=== PATIENT | female | born 1975 | race Caucasian/White ===

== ENCOUNTER 2022-05-31 14:48 | Outpatient (CLI) | payer OTHER, SELFPAY ==
[2022-05-31 16:49] LABS: Albumin* 4.5 g/dL (3.3-5.0); Chloride* 101 mmol/L (96-114); Sodium* 137 mmol/L (135-149)
[2022-05-31 16:50] LABS: Potassium* 4.1 mmol/L (3.6-5.1)
[2022-05-31 16:52] LABS: Alkaline Phosphatase* 81 U/L (40-150); Aspartate Amino Transferase* 24 U/L (12-35); Bilirubin Total* 0.2 mg/dL (0.1-1.5); Blood Urea Nitrogen* 13 mg/dL (5-24); Carbon Dioxide* 30 mmol/L (20-32); Cholesterol* 246 mg/dL (90-199); Creatinine* 0.7 mg/dL (0.5-1.5); Estimated Glomerular Filt Rate 107 ml/min; Glucose* 111 mg/dL (60-115); Total Protein* 7.4 g/dL (6.0-8.3)
[2022-05-31 16:53] LABS: Alanine Aminotransferase* 21 U/L (4-35); Calcium* 9.3 mg/dL (8.4-10.6); HDL Cholesterol* 67 mg/dL (>=50); LDL Cholesterol Calculated 147 mg/dL (<100); Triglycerides* 159 mg/dL (40-149)
[2022-05-31 17:43] LABS: Vitamin B12* 187 pg/mL (243-894)
== END 2022-05-31 14:49 | disposition home or self-care (01) ==
PROVIDERS: PCP Family Medicine; Visit Provider Family Medicine
DX: Z01.419 Encounter for gynecological examination (general) (routine) without abnormal findings (principal); R03.0 Elevated blood-pressure reading, without diagnosis of hypertension; E53.8 Deficiency of other specified B group vitamins; H81.09 Meniere's disease, unspecified ear; I10 Essential (primary) hypertension; R53.83 Other fatigue
CPT/HCPCS: 80053; 80061; 82607; 84443

== ENCOUNTER 2024-11-12 11:46 | Emergency (ER) | payer BC, SELFPAY ==
[2024-11-12 12:08] VITALS: BP 160/122; PULSE 120; RESP 16; TEMP 36.4; O2SAT 97; BMI 21.5
--- NOTE | 2024-11-12 15:04 | ED.GENADULT ---
HPI - General Adult General Date Seen: 11/12/24 Chief complaint: Back Injury/Pain Stated complaint: Painful back spasms Time Seen by Provider: 11/12/24 15:00 History of Present Illness HPI narrative: 49 F with past medical history of hypertension, Meniere's disease, B12 deficiency. Three days ago on Monday she was bending over on the couch for a while, playing Legos with her family when she started experiencing pain in the left posterior ribcage/thoracic portion of her her back. The pain is just at and around her left scapula and radiates around her left chest from there. It hurts when she tries to move or lift her left arm. Does not really hurt to breathe. She is not short of breath. No cough. No fever. No anterior chest pain. No palpitations. No abdominal pain. No flank pain. urination and bowel movements have been normal. No dysuria, urgency, frequency. No associated numbness or tingling down her arms or legs. No lower back pain. The patient is pretty sure that she has muscle spasm in her back. She has no previous history of thoracic problems. Related Data Previous Rx's ?Medication ?Instructions ?Recorded cyanocobalamin (vitamin B-12) 1,000 mcg PO BID vitamin B12 06/02/22 1,000 mcg capsule deficiency #180 caps diazepam 5 mg tablet 5 mg PO TID PRN #10 tabs 11/12/24 hydrocodone 5 mg-acetaminophen 325 1 tab PO Q6H PRN pain #14 tabs 11/12/24 mg tablet ondansetron 4 mg disintegrating 4 mg PO Q8H PRN nausea and 11/12/24 tablet vomiting #10 tabs Allergies Allergy/AdvReac Type Severity Reaction Status Date / Time avocado Allergy Mild Nausea Verified 11/12/24 12:03 [facility] Medical History (Updated 11/12/24 @ 16:39 by Florentino Ybarra MD) Meniere's disease (1994) ?H81.09 - Meniere's disease, unspecified ear (ICD-10) History of depression ?Z86.59 - Personal history of other mental and behavioral disorders (ICD-10) Depression ?F32.A - Depression, unspecified (ICD-10) Constipation ?K59.00 - Constipation, unspecified (ICD-10) Chest pain ?R07.9 - Chest pain, unspecified (ICD-10) Surgical History (Updated 05/31/22 @ 14:31 by Hayley Miranda MD) No history of previous surgery Family History (Updated 05/31/22 @ 16:30 by Hayley Miranda MD) Father FH: prostate cancer Mother Migraine Stroke, Onset Age: 70 Brother Seizures Family/Other Breast cancer, Onset Age: 60 Social History (Updated 05/31/22 @ 16:31 by Hayley Miranda MD) Narrative: Drinks 5 alcoholic drinks a week Does not exercise Single, teacher of [employer] Tobacco abuse, currently 10/day, 10 pack years Smoking Status: Current every day smoker What tobacco products do you use: cigarettes Smoking packs per day: 0.5 Smoking cigarettes per day: 10.0 Do you use any of these nicotine containing products: None Second hand tobacco smoke exposure: No How often do you have a drink containing alcohol: 4 or more times a week How many standard drinks containing alcohol do you have on a typical day: 1 or 2 AUDIT-C Alcohol total score: 4 Non-prescribed substance use: denies use service: No Exam Narrative: Exam Narrative: Constitutional: Appears well-developed and well-nourished. Alert. Conversant. Non toxic. HENT: Head: Atraumatic. Nose: Nose normal. Mouth/Throat: Oral mucosa is clear and moist. no trismus. Pharynx normal. Tonsils symmetric. No tonsillar enlargement, erythema, or exudate. Eyes: Conjunctivae normal. EOM normal. Pupils equal, round, and reactive to light. No scleral icterus. Neck: Normal range of motion. Neck supple. No tracheal deviation present. Cardiovascular: Normal rate, regular rhythm. No gallop. No friction rub. No murmur heard. Symmetric radial artery pulses Pulmonary/Chest: Effort normal. No stridor. No respiratory distress. No wheezes. No rales. No rhonchi . Exquisite tenderness palpation over the left posterior hemithorax at the base of the scapula and around laterally. No bruising. No rash. No shingles. Abdominal: Soft. Bowel sounds normal. No distension. No mass. No tenderness. No rebound. No guarding. Musculoskeletal: RUE: Normal range of motion. No tenderness. No deformity LUE: Range of motion in her shoulders limited because she worries that lifting her arm will cause back pain to flare. I am able to passively range her shoulder up to about 90? of abduction, 90? of flexion. She has normal internal and external rotation. No bony tenderness of the clavicle, shoulder, humerus, elbow, forearm, wrist, hand. No tenderness. No deformity RLE: Normal range of motion. No edema. No tenderness. No deformity LLE: Normal range of motion. No edema. No tenderness. No deformity No midline T or L-spine tenderness. Neurological: Mental status normal. Attention normal. Alert and oriented x3. GCS 15. Memory normal. Speech fluent. Cognition normal. Cranial Nerves intact II-XII except I did not formally test gag or visual acuity. EOMI. Palate elevates symmetrically and tongue protrudes in the midline. Strength: 5/5 trapezius on the right and left 5/5 deltoid on the right and left 5/5 biceps on the right and left 5/5 triceps on the right and left 5/5 it project lead on the right and left 5/5 thumb opposition on the right and left 5/5 finger abduction on the right and left 5/5 hip flexors (L3) on the right and left 5/5 quadriceps (L4) on the right and left 5/5 tibialis anterior on the right and left 5/5 EHL (L5) on the right and left 5/5 gastrocnemius (S1) on the right and left 5/5 hamstring on the right and left Sensation intact to light touch in both upper extremities (C4-T1) Sensation intact to light touch in Both lower extremities (L4-S1). Finger to nose and coordination normal. Gait normal. Skin: Skin is warm and dry. No rash noted. No pallor. Normal capillary refill. Psychiatric: Normal mood. Normal affect. Const: Vital Signs, click to edit/add: Vital Signs - 24 hr 11/12/24 12:08 11/12/24 16:51 Temperature 97.6 F Pulse Rate [Pulse Oximeter] 120 H 80 Respiratory Rate 16 16 Blood Pressure [Ri ght Upper Arm] 160/122 H 140/105 H Pulse Oximetry 97 96 Oxygen Delivery Me thod Room Air Course Course ED Course: Evaluation performed ER bed 4. We discussed our differential including musculoskeletal thoracic pain, as well as intrathoracic causes such as pneumonia, rib fracture, spontaneous pneumothorax, PE, aortic dissection. Also discussed this possible spinal pathology. Exam shows no evidence for any chest wall contusion, shingles. Patient is fairly certain that this is musculoskeletal pain and does not really want to have further workup. She would like to try pain medication 1st Reevaluation(s) Reevaluation #1: Recheck-after pain medication and muscle relaxers doing much better. She is able to range her left shoulder better but still not normally. Still mildly tender to palpation over the left posterior thorax. She feels comfortable discharging home with supportive treatment with a plan for watchful waiting (rather than further workup here in the ER). Vital Signs Vital signs: Initial Vital Signs Temperature 97.6 F 11/12/24 12:08 Temperature Source Temporal Artery Scan 11/12/24 12:08 Pulse Rate 120 H 11/12/24 12:08 Pulse Rhythm Regular 11/12/24 12:08 Pulse Strength 3+ Normal 11/12/24 12:08 Respiratory Rate 16 11/12/24 12:08 Blood Pressure 160/122 H 11/12/24 12:08 Blood Pressure Mean 134 H 11/12/24 12:08 Blood Pressure Position Standing 11/12/24 12:08 Pulse Oximetry 97 11/12/24 12:08 Vital Signs Temperature 97.6 F 11/12/24 12:08 Pulse Rate 120 H 11/12/24 12:08 Respiratory Rate 16 11/12/24 12:08 Blood Pressure 160/122 H 11/12/24 12:08 Pulse Oximetry 97 11/12/24 12:08 Temperature 97.6 F 11/12/24 12:08 Pulse Rate 80 11/12/24 16:51 Respiratory Rate 16 11/12/24 16:51 Blood Pressure 140/105 H 11/12/24 16:51 Pulse Oximetry 96 11/12/24 16:51 Oxygen Delivery Method Room Air 11/12/24 16:51 Medications Administered Medications: Discontinued Medications Generic Name Dose Route Start Last Admin Trade Name Freq PRN Reason Stop Dose Admin Diazepam 5 mg 11/12/24 15:17 11/12/24 15:28 Diazepam 5 Mg Tablet PO 11/12/24 15:18 5 mg ONCE ONE Administration Hydromorphone HCl 1 mg 11/12/24 15:17 11/12/24 15:28 Hydromorphone 0.5 Mg/0.5 Ml Inj IM 11/12/24 15:18 1 mg ONCE ONE Administration Ondansetron HCl 4 mg 11/12/24 15:17 11/12/24 15:28 Ondansetron Odt 4 Mg Tab PO 11/12/24 15:18 4 mg ONCE ONE Administration Medical Decision Making MDM Narrative Medical decision making narrative: Very pleasant 49-year-old female presenting to the ER today with atraumatic left posterior thorax/upper back pain that started 2 days ago after she was bending over and and knock word position building Legos from her couch. She is pretty sure that she has a musculoskeletal cause for pain. Differential here is broad. Consider possible spontaneous pneumothorax, left rib pathology. Lung sounds are clear and equal. No evidence for any pneumo on my clinical exam. Differential would also include other pathology such as PE, aortic dissection. Although my clinical suspicion for these are low, they cannot be definitively ruled out without further workup including labs, D-dimer testing, and/or chest CT. Patient will prefer not to undergo that workup further. Very unlikely that this pain, since it is so reproducible, it indicate an atypical presentation of ACS. Also consider spine pathology such as thoracic disc herniation, epidural abscess or hematoma, among others. Would need further workup with MRI for further evaluation. Patient would prefer to treat with supportive care for now. At this point the patient is clearly calm and conversant understands the diagnoses in question. I think she has medical decision-making capacity to hold off on further workup for now. Will provide prescriptions for pain medications and muscle relaxers. Opiate and sedation precautions reviewed. She will return to the ER immediately with any worsening symptoms or if she fails to improve. She is comfortable the plan of care and feels ready for discharge. Discharge Plan Discharge Clinical Impression: Acute upper back pain Patient Disposition: Home, Self-Care Condition: Stable Instructions: Back Pain (ED), Opioid Safety (ED) Additional Instructions: As we discussed, to treat your back pain you can start with warm packs or cold packs, after that you can use Tylenol or ibuprofen. If pain uncontrolled by those interventions you can use muscle relaxers or prescription pain killers. Be careful with prescription medications because they can cause dizziness, drowsiness, constipation, and can be addictive. He monitor symptoms very carefully and if you are having worsening symptoms, trouble breathing, worsening chest pain, palpitations, lightheadedness, fever, or any problems, please come back to the emergency department right away. If you are not substantially improved within 48 hours, please come back to the ER or see your doctor for a recheck Prescriptions: New hydrocodone-acetaminophen 5-325 mg tablet 1 tab PO Q6H PRN (Reason: pain) Qty: 14 0RF ondansetron 4 mg tablet,disintegrating 4 mg PO Q8H PRN (Reason: nausea and vomiting) Qty: 10 0RF diazepam 5 mg tablet 5 mg PO TID PRNQty: 10 0RF No Action cyanocobalamin (vitamin B-12) 1,000 mcg capsule 1,000 mcg PO BID MDD 2000 mcg Qty: 180 0RF Follow Up/Referrals: Hayley Miranda MD [Primary Care Provider] - Stand Alone Forms: [facility] Info Instructions
[2024-11-12] MEDS: HYDROmorphone 0.5 mg/0.5 ml inj 1 MG IM (15:28)
[2024-11-12] MEDS: ONDANSETRON ODT 4 MG TAB PO (15:28)
[2024-11-12] MEDS: diazePAM 5 MG TABLET PO (15:28)
[2024-11-12 16:51] VITALS: BP 140/105; PULSE 80; RESP 16; O2SAT 96
== END 2024-11-12 16:53 | disposition home or self-care (01) ==
PROVIDERS: Emergency Provider Emergency Medicine; PCP Family Medicine
DX: M54.89 Other dorsalgia (principal)
CPT/HCPCS: 96372; 99283; 99284; A9270; J1171